=== PATIENT | male | born 1970 | race Caucasian/White ===

== ENCOUNTER 2022-05-10 09:53 | Day surgery (SDC) | payer OTHER ==
[~2022-05-10] VITALS: Ht 185.4 cm; Wt 106.6 kg
[~2022-05-10 09:53] MED LIST: DIAZ5 PO; HYDACE5 PO; HYDMOR4 PO; NAPR500 PO; OXYACE10 PO; OXYACE5T PO; OXYACE7.5T PO; PROACE100
--- NOTE | 2022-05-10 12:56 | NUR ---
05/10/22 1256 Yudith Bazzi S PT. CAME IN PREOP WITH BP134/91. POST COLONOSCOPY BP 137/95,128/101,129/106,122/100,127/99. PT. TAKES NO MEDICATIONS. DR. LANTIGUA CALLED BY [facility] TO NOTIFY HIM OF INCREASED BP, PER DR. LANTIGUA, OK TO SEND PT. HOME. PT. INSTUCTED TO RECHECK HIS BP TODAY & IF CONTINUES TO BE ELEVATED HE NEEDS TO FOLLOW UP WITH HIS PRIMARY CARE. PT. & BOTH AGREE TO THIS.
== END 2022-05-10 12:45 | disposition home or self-care (01) ==
LOC: ORSCSDS 09:53
PROVIDERS: Surgery
PROC: 0DBP8ZX Excision of Rectum, Via Natural or Artificial Opening Endoscopic, Diagnostic (ICD-10-PCS; principal; 2022-05-10 11:15)
PROC: 0DBK8ZX Excision of Ascending Colon, Via Natural or Artificial Opening Endoscopic, Diagnostic (ICD-10-PCS; principal; 2022-05-10 11:15)
DX: R19.5 Other fecal abnormalities (principal); D12.2 Benign neoplasm of ascending colon; K62.1 Rectal polyp; K64.8 Other hemorrhoids; Z87.891 Personal history of nicotine dependence; E78.00 Pure hypercholesterolemia, unspecified
CPT/HCPCS: 88305; J0330; J0461; J2405; J2704; J7120